=== PATIENT | male | born 1985 | race Caucasian/White ===

== ENCOUNTER 2022-02-01 20:34 | Emergency (ER) | payer SELFPAY ==
[~2022-02-01] VITALS: Ht 170.2 cm; Wt 90.7 kg
--- NOTE | 2022-02-01 21:15 | NUR ---
Patient eloped from facility. ER physician notified.
== END 2022-02-01 21:30 | disposition left against medical advice (07) ==
LOC: ER 20:37
DX: R10.9 Unspecified abdominal pain (principal); K92.0 Hematemesis
CPT/HCPCS: A4663